=== PATIENT | male | born 1950 | race Caucasian/White ===

== ENCOUNTER → 2016-11-30 | Outpatient (CLI) | payer MEDICARE ==
[~2016-11-30] MED LIST: AMLO10TA OR; ASPI81TA83 OR; ATEN50TA2 OR; AVALIDE PO; HEPARIN LOCK FLUSH IV; HUMULIN N SC; SALINE LOCK FLUSH IV; VANCOMYCIN IV
[2016-11-30 09:41] LABS: ALBUMIN 3.9 GM/DL (3.2-5.2); ALBUMIN/GLOBULIN RATIO 1.11 (1.00-1.93); ALKALINE PHOSPHATASE 99 U/L (45-117); ALT/SGPT 28 U/L (12-78); ANION GAP 7 MEQ/L (8-16); AST/SGOT 21 U/L (15-37); BILIRUBIN,TOTAL 0.4 MG/DL (0.2-1.0); BLOOD UREA NITROGEN 26 MG/DL (7-18); CALCIUM LEVEL 9.2 MG/DL (8.8-10.2); CARBON DIOXIDE LEVEL 30 MEQ/L (21-32); CHLORIDE LEVEL 104 MEQ/L (98-107); CHOLESTEROL LEVEL 197 MG/DL (<200); CREATININE FOR GFR 1.18 MG/DL (0.70-1.30); GLOMERULAR FILTRATION RATE > 60.0 (>49); GLUCOSE, FASTING 155 MG/DL (80-110); POTASSIUM SERUM 4.1 MEQ/L (3.5-5.1); SODIUM LEVEL 141 MEQ/L (136-145); TOTAL PROTEIN 7.4 GM/DL (6.4-8.2); TRIGLYCERIDES LEVEL 92 MG/DL (<150)
== END ==
LOC: M WUC 08:01
PROVIDERS: ATTEND Nurse Practitioner Family
DX: E11.9 Type 2 diabetes mellitus without complications (principal); I10 Essential (primary) hypertension

== ENCOUNTER → 2017-07-29 | Outpatient (CLI) | payer MEDICARE ==
[2017-07-29 10:26] LABS: ALBUMIN 3.9 GM/DL (3.2-5.2); ALBUMIN/GLOBULIN RATIO 1.15 (1.00-1.93); ALKALINE PHOSPHATASE 81 U/L (45-117); ALT/SGPT 25 U/L (12-78); ANION GAP 9 MEQ/L (8-16); AST/SGOT 20 U/L (15-37); BILIRUBIN,TOTAL 0.4 MG/DL (0.2-1.0); BLOOD UREA NITROGEN 23 MG/DL (7-18); CALCIUM LEVEL 8.6 MG/DL (8.8-10.2); CARBON DIOXIDE LEVEL 27 MEQ/L (21-32); CHLORIDE LEVEL 106 MEQ/L (98-107); CHOLESTEROL LEVEL 192 MG/DL (<200); CREATININE FOR GFR 1.04 MG/DL (0.70-1.30); GLOMERULAR FILTRATION RATE > 60.0 (>49); GLUCOSE, FASTING 57 MG/DL (80-110); POTASSIUM SERUM 3.9 MEQ/L (3.5-5.1); SODIUM LEVEL 142 MEQ/L (136-145); TOTAL PROTEIN 7.3 GM/DL (6.4-8.2); TRIGLYCERIDES LEVEL 120 MG/DL (<150)
== END ==
LOC: M WUC 08:08
PROVIDERS: ATTEND Nurse Practitioner Family
DX: E11.9 Type 2 diabetes mellitus without complications (principal); E78.4 Other hyperlipidemia; I10 Essential (primary) hypertension

== ENCOUNTER → 2018-07-27 | Outpatient (CLI) | payer MEDICARE ==
[2018-07-27 14:26] LABS: ESTIMATED AVERAGE GLUCOSE 163 MG/DL (60-110); HEMOGLOBIN A1c 7.3 %
== END ==
LOC: M WUC 10:13
DX: E11.9 Type 2 diabetes mellitus without complications (principal)
CPT/HCPCS: 83036

== ENCOUNTER → 2018-08-19 | Outpatient (CLI) | payer MEDICARE ==
[2018-08-19 09:58] LABS: BASO # 0.1 10^3/uL (0.0-0.2); BASO % 1.6 % (0.0-1.0); EOS # 0.3 10^3/uL (0.0-0.50); EOS % 4.4 % (0.0-3.0); HEMATOCRIT 41.3 % (42.0-52.0); HEMOGLOBIN 13.6 g/dl (13.5-17.5); IMMATURE GRANULOCYTE % 0.3 % (0-3.0); LYMPH # 2.2 10^3/uL (1.5-4.5); LYMPH % 31.4 % (24.0-44.0); MEAN CORPUSCULAR HEMOGLOBIN 28.8 pg (27.0-33.0); MEAN CORPUSCULAR HGB CONC 32.9 g/dl (32.0-36.5); MEAN CORPUSCULAR VOLUME 87.3 fl (80.0-96.0); MONO # 0.8 10^3/uL (0.0-0.8); MONO % 10.8 % (0.0-5.0); NEUTROPHILS # 3.6 10^3/uL (1.8-7.7); NEUTROPHILS % 51.5 % (36.0-66.0); PLATELET COUNT, AUTOMATED 226 10^3/uL (150-450); RED BLOOD COUNT 4.73 10^6/uL (4.30-6.10); RED CELL DISTRIBUTION WIDTH 13.5 % (11.5-14.5)
[2018-08-19 10:28] LABS: ALBUMIN 3.8 GM/DL (3.2-5.2); ALBUMIN/GLOBULIN RATIO 1.03 (1.00-1.93); ALKALINE PHOSPHATASE 94 U/L (45-117); ALT/SGPT 29 U/L (12-78); ANION GAP 9 MEQ/L (8-16); AST/SGOT 21 U/L (7-37); BILIRUBIN,TOTAL 0.4 MG/DL (0.2-1.0); BLOOD UREA NITROGEN 28 MG/DL (7-18); CARBON DIOXIDE LEVEL 26 MEQ/L (21-32); CHLORIDE LEVEL 105 MEQ/L (98-107); CHOLESTEROL LEVEL 210 MG/DL (<200); CHOLESTEROL RISK RATIO 5.121 (<5); CREATININE FOR GFR 1.15 MG/DL (0.70-1.30); GLOMERULAR FILTRATION RATE > 60.0 (>49); GLUCOSE, FASTING 85 MG/DL (70-100); HDL CHOLESTEROL 41 MG/DL (>40); LDL CHOLESTEROL 133 MG/DL (<100); NON-HDL-C 169 MG/DL; POTASSIUM SERUM 4.4 MEQ/L (3.5-5.1); SODIUM LEVEL 140 MEQ/L (136-145); TOTAL PROTEIN 7.5 GM/DL (6.4-8.2); TRIGLYCERIDES LEVEL 178 MG/DL (<150)
== END ==
LOC: M WUC 08:05
DX: I10 Essential (primary) hypertension (principal); E74.8 Other specified disorders of carbohydrate metabolism
CPT/HCPCS: 80053

== ENCOUNTER → 2019-04-28 | Outpatient (CLI) | payer MEDICARE ==
[2019-04-28 09:34] LABS: BASO # 0.1 10^3/uL (0.0-0.2); BASO % 1.2 % (0.0-1.0); EOS # 0.2 10^3/uL (0.0-0.50); EOS % 2.8 % (0.0-3.0); HEMATOCRIT 41.8 % (42.0-52.0); HEMOGLOBIN 13.6 g/dl (13.5-17.5); LYMPH % 27.8 % (24.0-44.0); MEAN CORPUSCULAR HEMOGLOBIN 29.4 pg (27.0-33.0); MEAN CORPUSCULAR HGB CONC 32.5 g/dl (32.0-36.5); MEAN CORPUSCULAR VOLUME 90.5 fl (80.0-96.0); MONO # 0.7 10^3/uL (0.0-0.8); MONO % 10.2 % (0.0-5.0); NEUTROPHILS # 4.2 10^3/uL (1.8-7.7); NEUTROPHILS % 57.7 % (36.0-66.0); PLATELET COUNT, AUTOMATED 215 10^3/uL (150-450); RED BLOOD COUNT 4.62 10^6/uL (4.30-6.10); WHITE BLOOD COUNT 7.2 10^3/uL (4.0-10.0)
[2019-04-28 09:56] LABS: HEMOGLOBIN A1c 7.6 %
[2019-04-28 10:00] LABS: ALBUMIN 3.9 GM/DL (3.2-5.2); ALT/SGPT 22 U/L (12-78); BILIRUBIN,TOTAL 0.5 MG/DL (0.2-1.0); BLOOD UREA NITROGEN 22 MG/DL (7-18); CALCIUM LEVEL 8.8 MG/DL (8.8-10.2); CARBON DIOXIDE LEVEL 28 MEQ/L (21-32); CHLORIDE LEVEL 107 MEQ/L (98-107); CHOLESTEROL LEVEL 223 MG/DL (<200); CHOLESTEROL RISK RATIO 5.186 (<5); CREATININE FOR GFR 1.25 MG/DL (0.70-1.30); GLOMERULAR FILTRATION RATE > 60.0 (>49); GLUCOSE, FASTING 146 MG/DL (70-100); HDL CHOLESTEROL 43 MG/DL (>40); LDL CHOLESTEROL 153 MG/DL (<100); NON-HDL-C 180 MG/DL; POTASSIUM SERUM 4.5 MEQ/L (3.5-5.1); SODIUM LEVEL 140 MEQ/L (136-145); TOTAL PROTEIN 7.6 GM/DL (6.4-8.2); TRIGLYCERIDES LEVEL 137 MG/DL (<150)
== END ==
LOC: M WUC 08:05
PROVIDERS: ATTEND Nurse Practitioner Family
DX: E11.9 Type 2 diabetes mellitus without complications (principal); I10 Essential (primary) hypertension; E78.49 Other hyperlipidemia

== ENCOUNTER 2019-11-21 20:44 | Emergency (ER) | payer MEDICARE ==
[~2019-11-21] VITALS: Ht 177.8 cm; Wt 90.9 kg
[2019-11-21] MEDS ORDERED: ACETAMINOPHEN 500 MG TAB PO ONE (21:30)
[2019-11-21 23:03] LABS: BASO # 0.1 10^3/uL (0.0-0.2); BASO % 0.7 % (0.0-1.0); EOS # 0.2 10^3/uL (0.0-0.5); EOS % 1.8 % (0.0-3.0); HEMATOCRIT 39.9 % (42.0-52.0); LYMPH # 1.7 10^3/uL (1.5-5.0); LYMPH % 17.3 % (24.0-44.0); MEAN CORPUSCULAR HEMOGLOBIN 28.3 pg (27.0-33.0); MEAN CORPUSCULAR HGB CONC 32.6 g/dl (32.0-36.5); MEAN CORPUSCULAR VOLUME 86.7 fl (80.0-96.0); MONO # 0.9 10^3/uL (0.0-0.8); MONO % 8.9 % (0.0-5.0); NEUTROPHILS # 6.8 10^3/uL (1.5-8.5); PLATELET COUNT, AUTOMATED 189 10^3/uL (150-450); WHITE BLOOD COUNT 9.6 10^3/uL (4.0-10.0)
[2019-11-21 23:40] LABS: ALBUMIN 3.5 GM/DL (3.2-5.2); ALT/SGPT 20 U/L (12-78); BILIRUBIN,DIRECT < 0.1 MG/DL (0.0-0.2); BILIRUBIN,TOTAL 0.4 MG/DL (0.2-1.0); BLOOD UREA NITROGEN 29 MG/DL (7-18); CALCIUM LEVEL 8.5 MG/DL (8.8-10.2); CARBON DIOXIDE LEVEL 25 MEQ/L (21-32); CHLORIDE LEVEL 106 MEQ/L (98-107); CREATININE FOR GFR 1.32 MG/DL (0.70-1.30); GLOMERULAR FILTRATION RATE 57.1 (>42); GLUCOSE, FASTING 215 MG/DL (70-100); LIPASE 57 U/L (73-393); POTASSIUM SERUM 4.3 MEQ/L (3.5-5.1); SODIUM LEVEL 139 MEQ/L (136-145); TOTAL PROTEIN 7.1 GM/DL (6.4-8.2)
--- NOTE | 2019-11-22 00:13 | REPVR ---
PROCEDURE INFORMATION: Exam: US Abdomen Limited, Right Upper Quadrant Exam date and time: 11/21/2019 11:25 PM Age: 69 years old Clinical indication: Abdominal pain; Acute; Additional info: Biliary/gb eval TECHNIQUE: Imaging protocol: Real-time ultrasound of the abdomen with image documentation. Examination was focused on the right upper quadrant. COMPARISON: No relevant prior studies available. FINDINGS: Liver: Normal. No masses. Gallbladder: Normal. No gallstones. There is no gallbladder wall thickening. Common bile duct: Normal at 4.8 mm diameter. No stones. No dilation. Pancreas: Gas limited view of pancreas is unremarkable. Right kidney: Normal. No mass. No hydronephrosis. IMPRESSION: No acute findings. No cholelithiasis or biliary distention. Electronically signed by: Randy Rain On 11/22/2019 00:12:40 AM
[2019-11-22 01:12] VITALS: BP 156/70
--- NOTE | 2019-11-22 07:42 | REP ---
Right rib series four views: There is no right rib fracture or other rib abnormality. However, on one-view the left ribs are demonstrated and there is a fracture at the anterior tip of the left fifth rib. Impression: The left fifth rib fracture. No right rib fracture. PA chest: There are no comparisons. There is no pneumothorax, hemothorax or pulmonary contusion. Lung shelton are clear. Cardiac size is normal. The paz, mediastinum, skeletal structures are. Impression: Negative PA chest. Electronically Signed by Vaibhav Rubio MD 11/22/2019 07:34 A
== END 2019-11-22 01:13 | disposition home or self-care (01) ==
LOC: M ED 20:44
DX: S22.32XA Fracture of one rib, left side, initial encounter for closed fracture (principal); W20.8XXA Other cause of strike by thrown, projected or falling object, initial encounter; Y92.89 Other specified places as the place of occurrence of the external cause; R07.1 Chest pain on breathing; E11.9 Type 2 diabetes mellitus without complications; I10 Essential (primary) hypertension; Z79.899 Other long term (current) drug therapy; Z79.82 Long term (current) use of aspirin

== ENCOUNTER → 2020-01-22 | Outpatient (CLI) | payer MEDICARE ==
[2020-01-22 09:50] LABS: HEMATOCRIT 43.3 % (42.0-52.0); MEAN CORPUSCULAR HEMOGLOBIN 28.2 pg (27.0-33.0); MEAN CORPUSCULAR HGB CONC 32.3 g/dl (32.0-36.5); MEAN CORPUSCULAR VOLUME 87.3 fl (80.0-96.0); PLATELET COUNT, AUTOMATED 219 10^3/uL (150-450); RED BLOOD COUNT 4.96 10^6/uL (4.30-6.10); WHITE BLOOD COUNT 8.2 10^3/uL (4.0-10.0)
[2020-01-22 10:06] LABS: HEMOGLOBIN A1c 8.9 %
[2020-01-22 10:10] LABS: ALBUMIN 3.5 GM/DL (3.2-5.2); ALT/SGPT 24 U/L (12-78); BILIRUBIN,TOTAL 0.5 MG/DL (0.2-1.0); BLOOD UREA NITROGEN 24 MG/DL (7-18); CALCIUM LEVEL 9.3 MG/DL (8.8-10.2); CARBON DIOXIDE LEVEL 28 MEQ/L (21-32); CHLORIDE LEVEL 103 MEQ/L (98-107); CHOLESTEROL LEVEL 228 MG/DL (<200); CREATININE FOR GFR 1.15 MG/DL (0.70-1.30); GLOMERULAR FILTRATION RATE > 60.0 (>42); GLUCOSE, FASTING 139 MG/DL (70-100); HDL CHOLESTEROL 38 MG/DL (>40); LDL CHOLESTEROL 154 MG/DL (<100); NON-HDL-C 190 MG/DL; POTASSIUM SERUM 4.7 MEQ/L (3.5-5.1); SODIUM LEVEL 140 MEQ/L (136-145); TOTAL PROTEIN 7.5 GM/DL (6.4-8.2); TRIGLYCERIDES LEVEL 180 MG/DL (<150)
== END ==
LOC: M WUC 08:07
PROVIDERS: ATTEND Internal Medicine
DX: E11.9 Type 2 diabetes mellitus without complications (principal); I10 Essential (primary) hypertension

== ENCOUNTER → 2020-06-03 | Outpatient (REF) | payer MEDICARE ==
[2020-07-03 14:26] LABS: HEMATOCRIT 43.1 % (42.0-52.0); HEMOGLOBIN 13.8 g/dl (13.5-17.5); MEAN CORPUSCULAR HEMOGLOBIN 28.3 pg (27.0-33.0); MEAN CORPUSCULAR VOLUME 88.3 fl (80.0-96.0); PLATELET COUNT, AUTOMATED 248 10^3/uL (150-450); RED BLOOD COUNT 4.88 10^6/uL (4.30-6.10); WHITE BLOOD COUNT 7.9 10^3/uL (4.0-10.0)
[2020-07-16 12:56] LABS: ALT/SGPT 27 U/L (12-78); BILIRUBIN,TOTAL 0.3 MG/DL (0.2-1.0); BLOOD UREA NITROGEN 28 MG/DL (7-18); CALCIUM LEVEL 9.2 MG/DL (8.8-10.2); CARBON DIOXIDE LEVEL 26 MEQ/L (21-32); CHLORIDE LEVEL 109 MEQ/L (98-107); CREATININE FOR GFR 1.26 MG/DL (0.70-1.30); GLOMERULAR FILTRATION RATE > 60.0 (>42); GLUCOSE, FASTING 60 MG/DL (70-100); HEMOGLOBIN A1c 7.5 %; POTASSIUM SERUM 4.2 MEQ/L (3.5-5.1); SODIUM LEVEL 143 MEQ/L (136-145)
== END ==
LOC: M LABWUC 08:25
PROVIDERS: ATTEND Internal Medicine
DX: E11.3293 Type 2 diabetes mellitus with mild nonproliferative diabetic retinopathy without macular edema, bilateral (principal); E11.42 Type 2 diabetes mellitus with diabetic polyneuropathy; I10 Essential (primary) hypertension; Z79.4 Long term (current) use of insulin

== ENCOUNTER 2021-04-15 08:32 | Observation (INO) | payer MEDICARE ==
[~2021-04-15] VITALS: Ht 177.8 cm; Wt 87.5 kg
--- NOTE | 2021-04-15 09:11 | REP ---
INDICATION: TRAUMA COMPARISON: Right rib series 11/21/2019. TECHNIQUE: Four views right shoulder. FINDINGS: There is a comminuted fracture of the body of the scapula and inferior glenoid.There is mild distraction of fracture fragments. No other evidence of acute fracture or dislocation. There is a tendinous calcification along the superolateral margin of the humeral head. There is ligamentous calcification at the acromioclavicular joint. IMPRESSION: Comminuted fracture of the body of the scapula and inferior glenoid, with mild distraction of fracture fragments. <Electronically signed by Vaibhav Escobedo > 04/15/21 [id number]
[2021-04-15] MEDS ORDERED: ISOVUE-370 76% 100ML VIAL As Ordered ONE (10:56)
[2021-04-15 11:02] LABS: BASO # 0.1 10^3/uL (0.0-0.2); BASO % 0.7 % (0.0-1.0); EOS % 0.3 % (0.0-3.0); HEMATOCRIT 43.2 % (42.0-52.0); HEMOGLOBIN 14.3 g/dl (13.5-17.5); LYMPH # 1.4 10^3/uL (1.5-5.0); LYMPH % 11.7 % (24.0-44.0); MEAN CORPUSCULAR HEMOGLOBIN 28.8 pg (27.0-33.0); MEAN CORPUSCULAR HGB CONC 33.1 g/dl (32.0-36.5); MEAN CORPUSCULAR VOLUME 86.9 fl (80.0-96.0); MONO # 0.8 10^3/uL (0.0-0.8); MONO % 7.1 % (2.0-8.0); NEUTROPHILS # 9.4 10^3/uL (1.5-8.5); NEUTROPHILS % 79.9 % (36.0-66.0); PLATELET COUNT, AUTOMATED 228 10^3/uL (150-450); RED BLOOD COUNT 4.97 10^6/uL (4.30-6.10); WHITE BLOOD COUNT 11.8 10^3/uL (4.0-10.0)
[2021-04-15 11:24] LABS: ALBUMIN 4.1 GM/DL (3.2-5.2); BILIRUBIN,DIRECT 0.1 MG/DL (0.0-0.2); BILIRUBIN,TOTAL 0.5 MG/DL (0.2-1.0); TOTAL PROTEIN 7.9 GM/DL (6.4-8.2)
[2021-04-15 11:28] LABS: APPEARANCE, URINE CLEAR (CLEAR); BACTERIA, URINE AUTO NEGATIVE (NEGATIVE); BILIRUBIN, URINE AUTO NEGATIVE (NEGATIVE); BLOOD, URINE BLOOD NEGATIVE (NEGATIVE); COLOR, URINE YELLOW (YELLOW); GLUCOSE, URINE (UA) AUTO 3+ mg/dL (NEGATIVE); KETONE, URINE AUTO NEGATIVE (NEGATIVE); LEUKOCYTE ESTERASE, URINE AUTO NEGATIVE (NEGATIVE); NITRITE, URINE AUTO NEGATIVE (NEGATIVE); PROTEIN, URINE AUTO 1+ mg/dL (NEGATIVE); RBC, URINE AUTO 2 /HPF (0-3); SPECIFIC GRAVITY URINE AUTO 1.027 (1.002-1.035); SQUAMOUS EPITHELIAL CELL UR AU 0 /HPF (0-6); UROBILINOGEN, URINE AUTO 0.2 mg/dL (0.0-2.0); WBC, URINE AUTO 1 /HPF (0-3)
--- NOTE | 2021-04-15 11:33 | REP ---
INDICATION: Trauma. COMPARISON: None. TECHNIQUE: 2 mm increments and reconstructed both sagittal coronal planes FINDINGS: Vertebral body height and alignment is within normal limits. There is moderate to severe disc space narrowing at every level and seen particularly at the C6-7 level where anterior and posterior osteophytic ridging is the heaviest. The facet joints appear to be well aligned bilaterally. Hypertrophic degenerative facet and uncovertebral joint changes are present at every level bilaterally. There is no evidence of an acute cervical spine fracture. The right 2nd rib is fractured and the imaged portion of the right scapula shows the comminuted scapular body fracture. The imaged skull base since a large area of decreased density in the posterior fossa. IMPRESSION: 1. Right scapular and right 2nd rib fracture. 2. Abnormal appearing posterior fossa but seen in a markedly limited fashion on this C-spine CT. Correlate with brain CT and or MRI if necessary. 3. C-spine degenerative changes no evidence of an acute C-spine fracture. <Electronically signed by Yovani Waddell > 04/15/21 [id number]
--- NOTE | 2021-04-15 11:35 | REP ---
INDICATION: Trauma. COMPARISON: None. TECHNIQUE: Helical scanning is acquired. 5 mm axial images were reformatted. Coronal MPR images were generated. FINDINGS: Bone window settings demonstrate an intact bony calvarium. There is no evidence of skull fracture or incidental bony calvarial lesion. The visualized paranasal sinuses appear clear. No intraorbital abnormality is seen. On soft tissue window setting images; the lateral, third, and fourth ventricles are normal in size and position. Escobedo-white differentiation pattern is normal above and below the tentorium. There are is no evidence of intracranial hemorrhage. No mass, edema, infarction, or midline shift is seen. There is no evidence of skull fracture or scalp hematoma. There is generalized volume loss mild in degree. There is encephalomalacia versus hypoplasia of the right inferior cerebellar hemisphere. This is a chronic finding. Old infarct versus is posterior fossa subarachnoid cyst with secondary hyperplasia. The cisterna magna appears prominent. No other extra-axial fluid collection is seen. 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 Enlarged cisterna magna noted. Generalized volume loss and vascular calcification. No skull fracture or intracranial injury.. <Electronically signed by Bladimir Solis > 04/15/21 [id number]
--- NOTE | 2021-04-15 11:39 | REP ---
INDICATION: Trauma. COMPARISON: None. TECHNIQUE: Standard helical technique after the intravenous administration of 100 cc Isovue 370 FINDINGS: The liver, gallbladder, spleen, pancreas, adrenal glands, and kidneys are within normal limits. There does appear to be 2 nonobstructing right nephroliths but difficult to evaluate since intravenous contrast was administered. The abdominal aorta and para-aortic regions are within normal limits. The bowel loops and the mesenteries are within normal limits. There is no evidence of free fluid or free air. There is no evidence of a mass or adenopathy. Bone window technique throughout the examination shows hip, spinal, and sacroiliac joint degenerative changes. IMPRESSION: There is no evidence of acute intraabdominal or intrapelvic disease. Findings as described above. <Electronically signed by Yovani Waddell > 04/15/21 [id number]
--- NOTE | 2021-04-15 11:55 | REP ---
INDICATION: Trauma. COMPARISON: None. TECHNIQUE: CT chest performed following the intravenous administration of 100 cc of Isovue 370. Sagittal and coronal reconstruction images are performed. FINDINGS: Lungs: Clear, no infiltrate or nodule. Mediastinum: No adenopathy. No hematoma Leni: No adenopathy. Axilla: No adenopathy. Pleura: No effusion. Heart: Not enlarged. Thoracic aorta: No aneurysm or dissection. Visualized osseous structures: There is a comminuted fracture of the right scapula with distraction of fracture fragments. The fracture extends into the inferior glenoid. There are old healed fractures of the anterior aspect of the left 3rd through 5th ribs. I do not see evidence of an acute rib fracture bilaterally. The thoracic vertebral bodies are normal in height and well aligned with diffuse spurring and no compression fracture. There is a small hiatal hernia. IMPRESSION: Comminuted fracture of the body of the right scapula with mild distraction of fracture fragments and extension into the inferior glenoid. No other acute abnormality identified. <Electronically signed by Vaibhav Escobedo > 04/15/21 [id number]
[2021-04-15] MEDS ORDERED: NORCO, ANEXSIA 5/325MG TABLET (HYDROcodone/ACETAMINOPHEN) PO ONE (12:55)
--- NOTE | 2021-04-15 13:33 | REP ---
INDICATION: ortho request, R scapula/2nd rib fx, 3D recon please. COMPARISON: Comparison radiographs of the right shoulder are from earlier this date.. TECHNIQUE: Helical scanning is acquired and 3 mm axial images are generated. Coronal and sagittal MPR images are generated and reviewed. 3D surface rendered images are generated as well. FINDINGS: Study confirms the presence of a comminuted fracture of the body of the scapula along the lateral scapular border extending into the inferior glenoid. There is 2 mm of impaction of the articular margin of the glenoid at the fracture site. Mild diastasis is seen in the fracture fragments along the inferior scapular border. At the inferior scapular tip there is mild override. There is a posteriorly displaced fragment in the body of the scapula. No humeral head fracture is seen. Coracoid process and the scapular spine appear intact. No distal clavicle fracture is seen. The AC joint appears to be somewhat hypertrophied but normally aligned. There is chondrocalcinosis at the AC joint and there is dystrophic soft tissue calcification adjacent to the greater tuberosity and along the course of the supraspinatus tendon consistent with calcific tendinitis or bursitis. IMPRESSION: Complex slightly impacted fracture of the scapular body extending through the inferior aspect of the glenoid. There is 2 mm of impaction of the intra-articular component at the glenoid. Calcific tendon 0 bursitis changes. AC joint hypertrophy. <Electronically signed by Bladimir Solis > 04/15/21 [id number]
[2021-04-15] MEDS ORDERED: ATEN50TA2 PO (14:16)
[2021-04-15] MEDS ORDERED: AMLO1TAB25 PO (14:16)
[2021-04-15] MEDS ORDERED: ASPI-161 PO (14:16)
[2021-04-15] MEDS ORDERED: INSUDET SQ (14:16)
[2021-04-15] MEDS ORDERED: GLUCOSE 4GM CHEW TABLET PO PRN (15:25)
[2021-04-15] MEDS ORDERED: GLUCAGON INJ 1MG VIAL SC PRN (15:25)
[2021-04-15] MEDS ORDERED: DEXTROSE 50% 50 ML SYRINGE IV PRN (15:25)
[2021-04-15] MEDS ORDERED: traMADol 50 MG TAB PO PRN (15:35)
[2021-04-15] MEDS ORDERED: PERCOCET 5MG/325MG TAB PO PRN (15:35)
[2021-04-15] MEDS ORDERED: ACETAMINOPHEN TAB 650MG DOSE (2X325MG) PO PRN (15:35)
[2021-04-15 15:52] LABS: RSV AMPLIFICATION NEGATIVE (NEGATIVE)
--- NOTE | 2021-04-15 16:17 | HPEPDOC ---
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 He otherwise denied any dizziness, vertigo, recent fever, chills, nausea, emesis, headaches, chest pain, palpitations or SOB. In the ED, he was hemodynamically stable, afebrile and workup included a CT of the R shoulder that confirmed the presence of a comminuted fracture of the body of the scapula along the lateral scapular border extending into the inferior g lenoid. There is 2 mm of impaction of the articular margin of the glenoid at the fracture site. Mild diastasis is seen in the fracture fragments along the inferior scapular border. At the inferior scapular tip there is mild override. There is a posteriorly displaced fragment in the body of the scapula. Similar findings were noted on CXR and on Ct chest, while old healed fractures of the anterior aspect of the left 3rd through 5th ribs were also noted on chest CT. Head CT showed no acute fracture, bleeding of infarction. CT A/P was grossly unremarkable except for incidental right sided non-obstructing nephroliths. WBC was 11.8 and the rest of the CBC and BMP were wnl. The ED provider spoke with orthopedics who recommended a sling and no surgical intervention. He is now being admitted to medicine for pain management. 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 REVIEW OF SYSTEMS: 10 point ROS was otherwise negative except as noted in the HPI HOME MEDICATIONS: Please see below. PHYSICAL EXAMINATION: VITAL SIGNS: see below GENERAL APPEARANCE: NAD on my examination, sling on HEENT: NCAT, EOMI, MMM CARDIOVASCULAR: RRR, no m/r/g LUNGS: CTAB ABDOMEN: Normoactive bowel sounds, soft, NTND EXTREMITIES: WWP, no LE edema, no UE edema NEUROLOGICAL: FROM in lowe extremities and LUE. RUE is limited at the shoulder joint by pain with hesitancy to abduct arm. Hand muscles intact with FROM, sensation intact. CN3-12 intact. PSYCHIATRIC: AOx3 LABORATORY DATA and IMAGING: Noted above MICROBIOLOGY: Please see below. ASSESSMENT: 70 yo M with a history of DM, HTN, remote CVA without residual deficits who presented from home with R shoulder pain reporting a mechanical fall down 4 stairs yesterday evening when he tripped on his socks and he landed on his R shoulder and was confirmed to have an acute comminuted fracture of the body of the scapula along the lateral scapular border extending into the inferior glenoid and is being admitted for pain management. PLAN: Comminuted fracture of the body of the scapula along the lateral scapular border extending into the inferior glenoid: -Was 2/2 mechanical fall down 4 stairs and landing on R shoulder -RUE in sling per ortho, as told by ED provider -consult orthopedics for PT/OT and function and limitations recs -acetaminophen [id number] for mild pain for fever -norco [id number] for severe pain -PT/OT DM: -continue home levemir 30u BID -SSI AC/HS -FSBG AC/HS -hypoglycemia protocol HTN: -continue home amlodipine and atenolol history of remote CVA: -ASA 81 -check lipid panel, should ideally be on a statin DVT ppx: ELLIOT and heparin SC Dispo: Obs, likely dc home tomorrow if pain is well controlled. Vital Signs Vital Signs Date Time Temp Pulse Resp B/P (MAP) Pulse Ox O2 Delivery O2 Flow Rate FiO2 04/15/21 13:58 16 97 Room Air 04/15/21 13:02 98.2 96 146/70 (95) Laboratory Data Labs 24H Laboratory Tests 2 04/15/21 10:51: Immature Granulocyte % (Auto) 0.3, Neutrophils (%) (Auto) 79.9H, Lymphocytes (%) (Auto) 11.7L, Monocytes (%) (Auto) 7.1, Eosinophils (%) (Auto) 0.3, Basophils (%) (Auto) 0.7, Neutrophils # (Auto) 9.4H, Lymphocytes # (Auto) 1.4L, Monocytes # (Auto) 0.8, Eosinophils # (Auto) 0.0, Basophils # (Auto) 0.1, Nucleated Red Blood Cells % (auto) 0.0, Total Bilirubin 0.5, Direct Bilirubin 0.1, Aspartate Amino Transf (AST/SGOT) 15, Alanine Aminotransferase (ALT/SGPT) 27, Alkaline Ph osphatase 114, Total Protein 7.9, Albumin 4.1, Albumin/Globulin Ratio 1.1, Lipase 58L 04/15/21 10:52: POC Glucose (Misc Panel) 467H, POC Sodium (Misc Panel) 137, POC Potassium (Misc Panel) 4.8, POC Chloride (Misc Panel) 99, POC Total CO2 (Misc Panel) 24.0, POC Blood Urea Nitrogen (Misc Panel 24, POC Ionized Calcium (Misc Panel) 4.8, POC Creatinine (Misc Panel) 1.2, POC Hematocrit (Misc Panel) 45.0 04/15/21 11:07: Urine Color YELLOW, Urine Appearance CLEAR, Urine pH 5.0, Urine Specific [place] 1.027, Urine Protein 1+H, Urine Glucose (Auto)(UA) 3+H, Urine Ketones (Auto) NEGATIVE, Urine Blood NEGATIVE, Urine Nitrite NEGATIVE, Urine Bilirubin NEGATIVE, Urine Urobilinogen 0.2, Urine Leukocyte Esterase (Auto) NEGATIVE, Urine WBC (Auto) 1, Urine RBC (Auto) 2, Urine Hyaline Casts (Auto) 1, Urine Bacteria (Auto) NEGATIVE, Urine Squamous Epithelial Cells 0, Urine Sperm (Auto) 04/15/21 14:17: Influenza Type A (RT-PCR) NEGATIVE, Influenza Type B (RT-PCR) NEGATIVE, Respiratory Syncytial Virus (RT-PCR NEGATIVE 04/15/21 14:25: CBC/BMP Laboratory Tests 04/15/21 10:51 Home Medications Scheduled Amlodipine Besylate (Amlodipine Besylate) 10 Mg Tablet, 10 MG PO DAILY Aspirin (Aspirin EC) 81 Mg Tablet.dr, 81 MG PO DAILY Atenolol (Atenolol) 50 Mg Tablet, 50 MG PO DAILY Insulin Detemir (Levemir) 100 Unit/1 Ml Vial, 30 UNITS SQ BID Allergies Coded Allergies: quinapril (Verified Allergy, Unknown, 04/15/21) A-FIB/CHADSVASC A-FIB History Current/History of A-Fib/PAF?: No Current PO Anticoag Therapy: No Age/Risk Factor Scoring CHADSVASC: CHADSVASC Response (Comments) Value Age Risk Factor Age 65-74 years old 1 Gender Risk Factor Male 0 Hx of CHF No 0 Hx of HTN Yes 1 Hx of Stroke/TIA/or VTE Yes 2 Hx of Diabetes Yes 1 Hx of Vascular Disease Yes 1 Total 6 Treatment Treatment ordered: NONE Reason Anticoagulant not given: Not indicated/[id number] JAVIER HENDRIX MD Apr 15, 2021 15:56
--- NOTE | 2021-04-15 17:27 | CR.PDOC ---
General Date of Consultation: Apr 15, 2021 Consultation CHIEF COMPLAINT: R scapular fracture with extension into glenoid. History from patient and admission H&P HISTORY OF PRESENT ILLNESS: 70 yo M with a PMHx of DM, HTN, remote CVA without r esidual deficits who presented from home with R shoulder pain reporting a mechanical fall down 4 stairs yesterday after tripping on his socks. He reportedly landed on his R shoulder and it has been hurting since with inability to abduct limited by pain. He otherwise denied any dizziness, vertigo, recent fever, chills, nausea, emesis, headaches, chest pain, palpitations or SOB. Contacted by ED re: patient. Placed in shoulder immobilizer for comfort. Advised Trauma surgery also consulted on pt due to multisystem trauma with the fractured rib. PAST MEDICAL HISTORY: as above PAST SURGICAL HISTORY: L 2nd through 5th toe amputation RLE surgery SOCIAL HISTORY: Marital status: Tobacco use: none ETOH: none Illicit drug use: none FAMILY HISTORY: Non-contributory ALLERGIES: Please see below. REVIEW OF SYSTEMS: Patient reports pain in R shoulder and side HOME MEDICATIONS: Please see below. PHYSICAL EXAMINATION: NVI right upper extremity: Sensation intact to median, Ulnar and radial n, as well as axillary n distributions. Motor intact to these except axiallary which was not tested due to pain. AIN was intact to motor distribution. Palpable R radial pulse. ROM intact to elbow and wrist. abrasion to right flank with bruising. IMAGING: XRAY:comminuted R scapula fracture with extension into glenoid CT Scan:Comminuted R scapular fracture with intraarticular extension into glenoid. Fracture of inferior glenoid with articular impaction and angulation of fragment. No dislocation of shoulder and joint congruity intact, grossly. LABORATORY DATA: Please see below. ASSESSMENT/PLAN: 70 M with mechanical fall resulting in R scapular fracture comminuted with exte nsion into articular surface of glenoid. Given degree of comminution, I have discussed non operative treatment with the patient. Allow fractures to heal and assess for post traumatic OA with possibility of late shoulder replacement surgery if needed. Patient is aware of likely limited ROM above 90 degrees given the injury and potential weakness/stiffness. PT to see. Sling to R arm Non wb to R upper extremity No ROM to shoulder x 2 weeks. ROM to right wrist and elbow, fully. Sleep in "recliner" position for comfort with HOB elevated 35-45 degrees. Pillow to support R arm when at rest. f/u 2 weeks in orthopedic clinic. Vital Signs/I&O Vital Signs Date Time Temp Pulse Resp B/P (MAP) Pulse Ox O2 Delivery O2 Flow Rate FiO2 04/15/21 16:25 98.0 68 20 153/70 (97) 95 Room Air Laboratory Data Labs 24H Laboratory Tests 2 04/15/21 10:51: Immature Granulocyte % (Auto) 0.3, Neutrophils (%) (Auto) 79.9H, Lymphocytes (%) (Auto) 11.7L, Monocytes (%) (Auto) 7.1, Eosinophils (%) (Auto) 0.3, Basophils (%) (Auto) 0.7, Neutrophils # (Auto) 9.4H, Lymphocytes # (Auto) 1.4L, Monocytes # (Auto) 0.8, Eosinophils # (Auto) 0.0, Basophils # (Auto) 0.1, Nucleated Red Blood Cells % (auto) 0.0, Total Bilirubin 0.5, Direct Bilirubin 0.1, Aspartate Amino Transf (AST/SGOT) 15, Alanine Aminotransferase (ALT/SGPT) 27, Alkaline Phosphatase 114, Total Protein 7.9, Albumin 4.1, Albumin/Globulin Ratio 1.1, Lipase 58L 04/15/21 10:52: POC Glucose (Misc Panel) 467H, POC Sodium (Misc Panel) 137, POC Potassium (Misc Panel) 4.8, POC Chloride (Misc Panel) 99, POC Total CO2 (Misc Panel) 24.0, POC Blood Urea Nitrogen (Misc Panel 24, POC Ionized Calcium (Misc Panel) 4.8, POC Creatinine (Misc Panel) 1.2, POC Hematocrit (Misc Panel) 45.0 04/15/21 11:07: Urine Color YELLOW, Urine Appearance CLEAR, Urine pH 5.0, Urine Specific [place] 1.027, Urine Protein 1+H, Urine Glucose (Auto)(UA) 3+H, Urine Ketones (Auto) NEGATIVE, Urine Blood NEGATIVE, Urine Nitrite NEGATIVE, Urine Bilirubin NEGATIVE, Urine Urobilinogen 0.2, Urine Leukocyte Esterase (Auto) NEGATIVE, Urine WBC (Auto) 1, Urine RBC (Auto) 2, Urine Hyaline Casts (Auto) 1, Urine Bacteria (Auto) NEGATIVE, Urine Squamous Epithelial Cells 0, Urine Sperm (Auto) 04/15/21 14:25: 04/15/21 15:43: Coronavirus (COVID-19)(PCR) NEGATIVE, Influenza Type A (RT-PCR) NEGATIVE, Influenza Type B (RT-PCR) NEGATIVE, Respiratory Syncytial Virus (PCR) NEGATIVE CBC/BMP Laboratory Tests 04/15/21 10:51 Allergies Coded Allergies: quinapril (Verified Allergy, Unknown, 04/15/21) Home Medications Scheduled Amlodipine Besylate (Amlodipine Besylate) 10 Mg Tablet, 10 MG PO DAILY, (Reported) Aspirin (Aspirin EC) 81 Mg Tablet.dr, 81 MG PO DAILY, (Reported) Atenolol (Atenolol) 50 Mg Tablet, 50 MG PO DAILY, (Reported) Insulin Detemir (Levemir) 100 Unit/1 Ml Vial, 30 UNITS SQ BID, (Reported) CAMILLA NEWMAN MD Apr 15, 2021 17:27
[2021-04-15 17:30] VITALS: BP 168/78
[2021-04-15] MEDS: HumaLOG INSULIN (NovoLOG) PER UNIT SC SCH (17:57)
[2021-04-15] MEDS: NORCO, ANEXSIA 5/325MG TABLET (HYDROcodone/ACETAMINOPHEN) PO PRN (20:35)
[2021-04-15] MEDS: HEPARIN SOD (PORCINE) 5000UNITS/ML 1ML VIAL/SYRINGE SQ SCH (20:36)
[2021-04-15] MEDS: LEVEMIR (INSULIN DETEMIR) 1 UNITS/0.01ML SQ SCH (20:37)
[2021-04-15] MEDS ORDERED: HumaLOG INSULIN (NovoLOG) PER UNIT SC SCH (21:00)
[2021-04-15 22:00] VITALS: BP 126/63
[2021-04-15 22:39] LABS: HEMOGLOBIN A1c 11.7 %
[2021-04-16 06:00] VITALS: BP 133/66
[2021-04-16 07:03] LABS: HEMATOCRIT 44.3 % (42.0-52.0); HEMOGLOBIN 14.2 g/dl (13.5-17.5); MEAN CORPUSCULAR HEMOGLOBIN 28.1 pg (27.0-33.0); MEAN CORPUSCULAR HGB CONC 32.1 g/dl (32.0-36.5); MEAN CORPUSCULAR VOLUME 87.7 fl (80.0-96.0); PLATELET COUNT, AUTOMATED 214 10^3/uL (150-450); RED BLOOD COUNT 5.05 10^6/uL (4.30-6.10); WHITE BLOOD COUNT 9.2 10^3/uL (4.0-10.0)
[2021-04-16 07:36] LABS: BLOOD UREA NITROGEN 23 MG/DL (7-18); CALCIUM LEVEL 9.2 MG/DL (8.8-10.2); CARBON DIOXIDE LEVEL 27 MEQ/L (21-32); CHLORIDE LEVEL 106 MEQ/L (98-107); CREATININE FOR GFR 1.12 MG/DL (0.70-1.30); GLOMERULAR FILTRATION RATE > 60.0 (>42); GLUCOSE, FASTING 207 MG/DL (70-100); MAGNESIUM LEVEL 2.4 MG/DL (1.8-2.4); POTASSIUM SERUM 4.1 MEQ/L (3.5-5.1); SODIUM LEVEL 139 MEQ/L (136-145)
[2021-04-16] MEDS: HEPARIN SOD (PORCINE) 5000UNITS/ML 1ML VIAL/SYRINGE SQ SCH (08:07)
[2021-04-16 08:08] VITALS: BP 133/66
[2021-04-16] MEDS: HumaLOG INSULIN (NovoLOG) PER UNIT SC SCH ×2 (08:08→12:04)
[2021-04-16] MEDS: LEVEMIR (INSULIN DETEMIR) 1 UNITS/0.01ML SQ SCH (08:08)
[2021-04-16] MEDS: NORCO, ANEXSIA 5/325MG TABLET (HYDROcodone/ACETAMINOPHEN) PO PRN (08:09)
[2021-04-16] MEDS ORDERED: ASPIRIN 81MG ENTERIC TABLET PO SCH (09:00)
[2021-04-16] MEDS ORDERED: atenoloL 50 MG TAB PO SCH (09:00)
[2021-04-16] MEDS ORDERED: HYDR-3715 PO (09:49)
--- NOTE | 2021-04-16 10:04 | DS.PDOC ---
Discharge Summary General Date of Admission Apr 15, 2021 at 08:33 Date of Discharge 04/16/2021 Attending Physician: JAVIER HENDRIX MD Discharge Summary PROCEDURES PERFORMED DURING STAY: None ADMITTING DIAGNOSES: Costochondral Pain, R Rib Fracture, R Scapula Frac. DISCHARGE DIAGNOSES: Comminuted fracture of the body of the scapula along the lateral scapular border extending into the inferior glenoid Old healed fractures of the anterior aspect of the left 3rd through 5th ribs DM HTN COMPLICATIONS/CHIEF COMPLAINT: Costochondral Pain, R Rib Fracture, R Scapula Frac. 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 He otherwise denied any dizziness, vertigo, recent fever, chills, nausea, emesis, headaches, chest pain, palpitations or SOB. HOSPITAL COURSE: In the ED, he was hemodynamically stable, afebrile and workup included a CT of the R shoulder that confirmed the presence of a comminuted fracture of the body of the scapula along the lateral scapular border extending into the inferior glenoid. There is 2 mm of impaction of the articular margin of the glenoid at the fracture site. Mild diastasis is seen in the fracture fragments along the inferior scapular border. At the inferior scapular tip there is mild override. There is a posteriorly displaced fragment in the body of the scapula. Similar findings were noted on CXR and on Ct chest, while old healed fractures of the anterior aspect of the left 3rd through 5th ribs were also noted on chest CT. Head CT showed no acute fracture, bleeding of infarction. CT A/P was grossly unremarkable except for incidental right sided non-obstructing nephroliths. WBC was 11.8 and the rest of the CBC and BMP were wnl. The ED provider spoke with orthopedics who recommended a sling and no surgical intervention. He was admitted to medicine for pain management. Orthopedics evaluated him and referred him to orthopedics in [place] for evaluation in the outpatient setting. He is now being discharged home with a sling, per the recommendation of orthopedics with LAWANDA mckeon for severe pain with close PCP follow up and [place] orthopedics per [facility] referral. DISCHARGE MEDICATIONS: Please see below. ALLERGIES: Please see below. PHYSICAL EXAMINATION ON DISCHARGE: VITAL SIGNS: Please see below. GENERAL APPEARANCE: NAD on my examination, sling on HEENT: NCAT, EOMI, MMM CARDIOVASCULAR: RRR, no m/r/g LUNGS: CTAB ABDOMEN: Normoactive bowel sounds, soft, NTND EXTREMITIES: WWP, no LE edema, no UE edema NEUROLOGICAL: FROM in lower extremities and LUE. RUE is limited at the shoulder joint by pain with hesitancy to abduct arm. Hand muscles intact with FROM, sensation intact. CN3-12 intact. PSYCHIATRIC: AOx3 LABORATORY DATA: Please see below. IMAGING: C head: No acute intracranial abnormalities CXR: There is a comminuted fracture of the body of the scapula and inferior glenoid.There is mild distraction of fracture fragments. No other evidence of acute fracture or dislocation. There is a tendinous calcification along the superolateral margin of the humeral head. There is ligamentous calcification at the acromioclavicular joint. IMPRESSION: Comminuted fracture of the body of the scapula and inferior glenoid, with mild distraction of fracture fragments. CT chest: Lungs: Clear, no infiltrate or nodule. Mediastinum: No adenopathy. No hematoma Leni: No adenopathy. Axilla: No adenopathy. Pleura: No effusion. Heart: Not enlarged. Thoracic aorta: No aneurysm or dissection. Visualized osseous structures: There is a comminuted fracture of the right scapula with distraction of fracture fragments. The fracture extends into the inferior glenoid. There are old healed fractures of the anterior aspect of the left 3rd through 5th ribs. I do not see evidence of an acute rib fracture bilaterally. The thoracic vertebral bodies are normal in height and well aligned with diffuse spurring and no compression fracture. There is a small hiatal hernia. IMPRESSION: Comminuted fracture of the body of the right scapula with mild distraction of fracture fragments and extension into the inferior glenoid. No other acute abnormality identified. CT R shoulder without contrast: Study confirms the presence of a comminuted fracture of the body of the scapula along the lateral scapular border extending into the inferior glenoid. There is 2 mm of impaction of the articular margin of the glenoid at the fracture site. Mild diastasis is seen in the fracture fragments along the inferior scapular border. At the inferior scapular tip there is mild override. There is a posteriorly displaced fragment in the body of the scapula. No humeral head fracture is seen. Coracoid process and the scapular spine appear intact. No distal clavicle fracture is seen. The AC joint appears to be somewhat hypertrophied but normally aligned. There is chondrocalcinosis at the AC joint and there is dystrophic soft tissue calcification adjacent to the greater tuberosity and along the course of the supraspinatus tendon consistent with calcific tendinitis or bursitis. IMPRESSION: Complex slightly impacted fracture of the scapular body extending through the inferior aspect of the glenoid. There is 2 mm of impaction of the intra-articular component at the glenoid. Calcific tendon 0 bursitis changes. AC joint hypertrophy. CT C-spine: Vertebral body height and alignment is within normal limits. There is moderate to severe disc space narrowing at every level and seen particularly at the C6-7 l evel where anterior and posterior osteophytic ridging is the heaviest. The facet joints appear to be well aligned bilaterally. Hypertrophic degenerative facet and uncovertebral joint changes are present at every level bilaterally. There is no evidence of an acute cervical spine fracture. The right 2nd rib is fractured and the imaged portion of the right scapula shows the comminuted scapular body fracture. The imaged skull base since a large area of decreased density in the posterior fossa. IMPRESSION: 1. Right scapular and right 2nd rib fracture. 2. Abnormal appearing posterior fossa but seen in a markedly limited fashion on this C-spine CT. Correlate with brain CT and or MRI if necessary. 3. C-spine degenerative changes no evidence of an acute C-spine fracture. CT A/P: The liver, gallbladder, spleen, pancreas, adrenal glands, and kidneys are within normal limits. There does appear to be 2 nonobstructing right nephroliths but difficult to evaluate since intravenous contrast was administered. The abdominal aorta and para-aortic regions are within normal limits. The bowel loops and the mesenteries are within normal limits. There is no evidence of free fluid or free air. There is no evidence of a mass or adenopathy. Bone window technique throughout the examination shows hip, spinal, and sacroiliac joint degenerative changes. IMPRESSION: There is no evidence of acute intraabdominal or intrapelvic disease. Findings as described above. PROGNOSIS: Good ACTIVITY: As tolerated, to keep R arm DIET: consistent carb diet, 2g sodium DISCHARGE PLAN: Home with close PCP follow up and orthopedics referral DISPOSITION: Home DISCHARGE INSTRUCTIONS: Home with close PCP follow up and orthopedics referral ITEMS TO FOLLOWUP ON ON OUTPATIENT: R scapular fracture DISCHARGE CONDITION: Stable TIME SPENT ON DISCHARGE: 36 minutes. Vital Signs/I&Os Vital Signs Date Time Temp Pulse Resp B/P (MAP) Pulse Ox O2 Delivery O2 Flow Rate FiO2 04/16/21 08:50 18 04/16/21 08:08 66 133/66 04/16/21 06:00 97.6 96 Room Air I&O- Last 24 Hours up to 6 AM 04/16/21 05:59 Intake Total 250 ml Output Total 750 ml Balance -500 ml Laboratory Data Labs 24H Laboratory Tests 2 04/15/21 10:51: Immature Granulocyte % (Auto) 0.3, Neutrophils (%) (Auto) 79.9H, Lymphocytes (%) (Auto) 11.7L, Monocytes (%) (Auto) 7.1, Eosinophils (%) (Auto) 0.3, Basophils (%) (Auto) 0.7, Neutrophils # (Auto) 9.4H, Lymphocytes # (Auto) 1.4L, Monocytes # (Auto) 0.8, Eosinophils # (Auto) 0.0, Basophils # (Auto) 0.1, Nucleated Red Blood Cells % (auto) 0.0, Total Bilirubin 0.5, Direct Bilirubin 0.1, Aspartate Amino Transf (AST/SGOT) 15, Alanine Aminotransferase (ALT/SGPT) 27, Alkaline Phosphatase 114, Total Protein 7.9, Albumin 4.1, Albumin/Globulin Ratio 1.1, Lipase 58L 04/15/21 10:52: POC Glucose (Misc Panel) 467H, POC Sodium (Misc Panel) 137, POC Potassium (Misc Panel) 4.8, POC Chloride (Misc Panel) 99, POC Total CO2 (Misc Panel) 24.0, POC Blood Urea Nitrogen (Misc Panel 24, POC Ionized Calcium (Misc Panel) 4.8, POC Creatinine (Misc Panel) 1.2, POC Hematocrit (Misc Panel) 45.0 04/15/21 11:07: Urine Color YELLOW, Urine Appearance CLEAR, Urine pH 5.0, Urine Specific [place] 1.027, Urine Protein 1+H, Urine Glucose (Auto)(UA) 3+H, Urine Ketones (Auto) NEGATIVE, Urine Blood NEGATIVE, Urine Nitrite NEGATIVE, Urine Bilirubin NEGATIVE, Urine Urobilinogen 0.2, Urine Leukocyte Esterase (Auto) NEGATIVE, Urine WBC (Auto) 1, Urine RBC (Auto) 2, Urine Hyaline Casts (Auto) 1, Urine Bacteria (Auto) NEGATIVE, Urine Squamous Epithelial Cells 0, Urine Sperm (Auto) 04/15/21 14:25: Estimated Mean Plasma Glucose 289H, Hemoglobin A1c 11.7 04/15/21 15:43: Coronavirus (COVID-19)(PCR) NEGATIVE, Influenza Type A (RT-PCR) NEGATIVE, Influenza Type B (RT-PCR) NEGATIVE, Respiratory Syncytial Virus (PCR) NEGATIVE 04/16/21 06:35: Nucleated Red Blood Cells % (auto) 0.0, Anion Gap 6L, Glomerular Filtration Rate > 60.0, Calcium Level 9.2, Magnesium Level 2.4 CBC/BMP Laboratory Tests 04/15/21 10:51 04/16/21 06:35 Discharge Medications Scheduled Amlodipine Besylate (Amlodipine Besylate) 10 Mg Tablet, 10 MG PO DAILY, (Reported) Aspirin (Aspirin EC) 81 Mg Tablet.dr, 81 MG PO DAILY, (Reported) Atenolol (Atenolol) 50 Mg Tablet, 50 MG PO DAILY, (Reported) Insulin Detemir (Levemir) 100 Unit/1 Ml Vial, 30 UNITS SQ BID, (Reported) Scheduled PRN Hydrocodone/Acetaminophen (Hydrocodone-Acetamin 5-325 mg) 1 Each Tablet, 1 TAB PO Q8HP PRN for MODERATE/SEVERE PAIN (PS 5-10) Allergies Coded Allergies: quinapril (Verified Allergy, Unknown, 04/15/21) JAVIER HENDRIX MD Apr 16, 2021 10:04
== END 2021-04-16 12:10 | disposition home or self-care (01) ==
LOC: M ED 08:32 → M ED INP 08:33 → M MS5PR 17:24
PROVIDERS: ADMIT Internal Medicine; ATTEND Internal Medicine
DX: S42.114A Nondisplaced fracture of body of scapula, right shoulder, initial encounter for closed fracture (principal); S22.31XA Fracture of one rib, right side, initial encounter for closed fracture; W10.8XXA Fall (on) (from) other stairs and steps, initial encounter; Y92.098 Other place in other non-institutional residence as the place of occurrence of the external cause; E11.65 Type 2 diabetes mellitus with hyperglycemia; I10 Essential (primary) hypertension; Z86.73 Personal history of transient ischemic attack (TIA), and cerebral infarction without residual deficits; Z87.81 Personal history of (healed) traumatic fracture; Z89.429 Acquired absence of other toe(s), unspecified side; Z79.899 Other long term (current) drug therapy; Z79.82 Long term (current) use of aspirin; Z79.4 Long term (current) use of insulin; Z88.8 Allergy status to other drugs, medicaments and biological substances
CPT/HCPCS: 36415; 70450; 71260; 72125; 73030; 73200; 74177; 80047; 80048; 80076; 81001; 83036; 83690; 83735; 85025; 85027; 87631; 96372; 97161; 97165; 99284; G0378; J1644; Q9967

== ENCOUNTER → 2023-07-12 | Outpatient (REF) | payer MEDICARE, OTHER ==
[~2023-07-12] MED LIST changes: +AMLO1TAB25 PO; +ASPI-161 PO; +ATEN50TA2 PO; +HYDR-3715 PO; +INSUDET SQ
[2023-07-12 19:52] LABS: URIC ACID 7.2 MG/DL (3.7-9.2)
[2023-07-13 12:16] LABS: C REACTIVE PROTEIN QUANTITATIV 8.5 MG/DL (<1.0)
== END ==
LOC: M LAB REF 16:58
PROVIDERS: ATTEND Internal Medicine
DX: H05.011 Cellulitis of right orbit (principal)

== ENCOUNTER → 2024-02-01 | Outpatient (REF) | payer OTHER, MEDICARE ==
[~2024-02-01] MED LIST changes: -ASPI-161 PO; +ASPI-615 PO
== END ==
LOC: M LAB REF 16:15
PROVIDERS: ATTEND Podiatrist Foot & Ankle Surgery
DX: L03.115 Cellulitis of right lower limb (principal)

== ENCOUNTER 2024-06-19 01:53 | Emergency (ER) | payer MEDICARE, OTHER ==
[~2024-06-19] VITALS: Ht 177.8 cm; Wt 93.6 kg
[2024-06-19] MEDS: IPRATROPIUM 0.5MG/ALBUTEROL 2.5MG INH SOL UD 3ML (DUONEB) NEB PRN (02:23)
[2024-06-19 02:24] LABS: ABG BASE EXCESS -4.5 (-2.0-2.0); ABG HCO3 18.5 MMOL/L (22.0-26.0); ABG O2 SATURATION 90.6 % (95.0-99.0); ABG PARTIAL PRESSURE CO2 28.5 mmHg (35.0-45.0); ABG PARTIAL PRESSURE O2 60.6 mmHg (75.0-100.0); ABG STANDARD HCO3 20.6 MMOL/L. (22.0-26.0); ABG TOTAL CO2 19.4 MMOL/L (23.0-31.0); ABG pH (ARTERIAL) 7.431 UNITS (7.350-7.450)
[2024-06-19 02:29] LABS: BASO # 0.1 10^3/uL (0.0-0.2); BASO % 0.3 % (0.0-1.0); HEMATOCRIT 39.1 % (42.0-52.0); HEMOGLOBIN 12.6 g/dl (13.5-17.5); LYMPH # 1.3 10^3/uL (1.5-5.0); LYMPH % 8.2 % (24.0-44.0); MEAN CORPUSCULAR HEMOGLOBIN 28.8 pg (27.0-33.0); MEAN CORPUSCULAR HGB CONC 32.2 g/dl (32.0-36.5); MEAN CORPUSCULAR VOLUME 89.5 fl (80.0-96.0); MONO # 1.7 10^3/uL (0.0-0.8); MONO % 10.9 % (2.0-8.0); NEUTROPHILS # 12.3 10^3/uL (1.5-8.5); PLATELET COUNT, AUTOMATED 260 10^3/uL (150-450); RED BLOOD COUNT 4.37 10^6/uL (4.30-6.10); WHITE BLOOD COUNT 15.3 10^3/uL (4.0-10.0)
[2024-06-19 02:55] LABS: ALBUMIN 3.4 G/DL (3.2-5.2); BILIRUBIN,DIRECT 0.5 MG/DL (<0.4); BILIRUBIN,TOTAL 1.5 MG/DL (0.3-1.2); CALCIUM LEVEL 8.8 MG/DL (8.3-10.6); CK-MB VALUE MASS 23.2 NG/ML (<3.6); CREATININE FOR GFR 1.67 MG/DL (0.70-1.30); GLOMERULAR FILTRATION RATE 42.9 (>42); MB/CK RELATIVE INDEX 5.2 (< OR =4); POTASSIUM SERUM 4.6 MMOL/L (3.5-5.1); TOTAL PROTEIN 7.1 G/DL (5.7-8.2)
[2024-06-19] MEDS ORDERED: ISOVUE-370 76% 100ML VIAL As Ordered ONE (03:12)
[2024-06-19 04:34] LABS: CK-MB VALUE MASS 37.9 NG/ML (<3.6)
[2024-06-19 04:35] LABS: MB/CK RELATIVE INDEX 7.5 (< OR =4)
[2024-06-19] MEDS ORDERED: HEPARIN SOD (PORCINE) 5000UNITS/ML 1ML VIAL/SYRINGE IV PRN (04:45)
[2024-06-19] MEDS: FUROSEMIDE 40MG/4ML VIAL IV ONE (05:08)
[2024-06-19] MEDS: ASPIRIN 81MG CHEW TABLET PO ONE (05:09)
[2024-06-19] MEDS: HEPARIN SOD (PORCINE) 5000UNITS/ML 1ML VIAL/SYRINGE IV ONE (05:12)
[2024-06-19] MEDS: HEPARIN DRIP 25,000 UNITS in IV 1 EA IV SCH (05:13)
[2024-06-19 06:00] VITALS: TEMP 98
[2024-06-19 06:04] VITALS: O2SAT 93
[2024-06-19 09:00] VITALS: BP 122/62; O2SAT 94
== END 2024-06-19 09:10 | disposition short-term general hospital (02) ==
LOC: EDBD 01:53 → M ED 01:53
DX: I21.4 Non-ST elevation (NSTEMI) myocardial infarction (principal); J81.0 Acute pulmonary edema; I44.7 Left bundle-branch block, unspecified; E11.9 Type 2 diabetes mellitus without complications; I10 Essential (primary) hypertension; N18.9 Chronic kidney disease, unspecified; E78.5 Hyperlipidemia, unspecified; Z88.8 Allergy status to other drugs, medicaments and biological substances; Z79.82 Long term (current) use of aspirin; Z79.4 Long term (current) use of insulin; Z79.899 Other long term (current) drug therapy
CPT/HCPCS: 36600; 71045; 71275; 80047; 80048; 80076; 82550; 82553; 82803; 83605; 83880; 84484; 85025; 85730; 87040; 87486; 87581; 87633; 87798; 93005; 93041; 94640; 94760; 96374; 96375; 99285; J1940; Q9967

== ENCOUNTER → 2024-07-13 | Outpatient (REF) | payer OTHER | LOC: M LAB REF 12:57 | PROVIDERS: ATTEND Internal Medicine | DX: I63.81 Other cerebral infarction due to occlusion or stenosis of small artery (principal); R06.9 Unspecified abnormalities of breathing ==

== ENCOUNTER → 2024-11-28 | Outpatient (REF) | payer OTHER ==
[2024-11-28 18:36] LABS: URIC ACID 4.3 MG/DL (3.7-9.2)
[2024-11-28 18:39] LABS: PHOSPHORUS LEVEL 4.3 MG/DL (2.4-5.1); PTH INTACT 62.3 PG/ML (18.5-88.0)
== END ==
LOC: M LAB REF 16:46
PROVIDERS: ATTEND Internal Medicine
DX: N18.32 Chronic kidney disease, stage 3b (principal)

== ENCOUNTER → 2025-05-02 | Outpatient (REF) | payer MEDICARE ==
[~2025-05-02] MED LIST changes: +AMIO200T54; +ELIQ5TAB; +EZET10TA21; +HUMA75IN2 SC; +METO1TAB87
[2025-05-02 14:37] LABS: PHOSPHORUS LEVEL 4.2 MG/DL (2.4-5.1); PTH INTACT 67.0 PG/ML (18.5-88.0)
== END ==
LOC: M LAB REF 14:00
PROVIDERS: ATTEND Internal Medicine
DX: M18.32 Unilateral post-traumatic osteoarthritis of first carpometacarpal joint, left hand (principal)

== ENCOUNTER → 2025-06-13 | Outpatient (REF) | payer MEDICARE | LOC: M LAB REF 12:00 | PROVIDERS: ATTEND Physician Assistant Medical | DX: I50.32 Chronic diastolic (congestive) heart failure (principal); I48.0 Paroxysmal atrial fibrillation ==

== ENCOUNTER → 2025-07-19 | Outpatient (REF) | payer MEDICARE ==
[~2025-07-19] MED LIST changes: -EZET10TA21; +EZET10TA57
== END ==
LOC: M LAB REF 13:11
PROVIDERS: ATTEND Internal Medicine
DX: I48.0 Paroxysmal atrial fibrillation (principal); I25.5 Ischemic cardiomyopathy